=== PATIENT | male | born 1960 | race Caucasian/White ===

== ENCOUNTER 2023-02-04 16:25 | Emergency (ER) | payer SELFPAY ==
[~2023-02-04] VITALS: Ht 175.3 cm; Wt 87.1 kg
[2023-02-04 16:45] VITALS: BP 162/93
[2023-02-04] MEDS ORDERED: ELIQUIS5 M2 PO (17:00)
== END 2023-02-04 17:20 | disposition home or self-care (01) ==
LOC: ER 16:25
DX: I82.412 Acute embolism and thrombosis of left femoral vein (principal)
CPT/HCPCS: 99283; A9270